=== PATIENT | female | born 1965 | race Hispanic/Latino ===

== ENCOUNTER 2021-05-26 17:43 | Emergency (ER) | payer BC, OTHER ==
[~2021-05-26] VITALS: Ht 152.4 cm; Wt 59.9 kg
[2021-05-26] MEDS ORDERED: MORPHINE SULFATE INJ 4 MG/ML INJ 1ML IV STA (17:58)
[2021-05-26] MEDS ORDERED: SODIUM CHLORIDE 0.9% 50ML 50 ML ONE (18:07)
[2021-05-26] MEDS ORDERED: IOPAMIDOL 370 MG/ML 200 ML INFUS..BTL INJ ONE (18:08)
== END 2021-05-26 19:13 | disposition home or self-care (01) ==
LOC: FSED 17:48
DX: S30.1XXA Contusion of abdominal wall, initial encounter (principal); M25.562 Pain in left knee; V43.52XA Car driver injured in collision with other type car in traffic accident, initial encounter; Y92.488 Other paved roadways as the place of occurrence of the external cause
CPT/HCPCS: 71250; 73562; 74177; 80053; 84484; 85025; 99284; Q9967

== ENCOUNTER 2021-05-29 19:57 | Emergency (ER) | payer BC ==
[~2021-05-29] VITALS: Ht 152.4 cm; Wt 59.9 kg
== END 2021-05-29 23:24 | disposition home or self-care (01) ==
LOC: FSED 20:10
DX: R07.89 Other chest pain (principal); R20.2 Paresthesia of skin; I10 Essential (primary) hypertension; E78.5 Hyperlipidemia, unspecified
CPT/HCPCS: 70450; 71046; 80053; 82553; 84484; 85025; 93005; 99284